=== PATIENT | male | born 1950 | race Caucasian/White ===

== ENCOUNTER → 2023-09-08 06:21 | Outpatient (REF) | payer MEDICARE, BC, SELFPAY ==
[2023-09-08 07:02] LABS: % Basophils 0.3 % (0-2); % Eosinophils 5.6 % (0-6); % Immature Granulocytes 0.6 % (0-0.5); % Lymphocytes 22.4 % (20.5-51.1); % Monocytes 7.9 % (1.7-9.3); % Neutrophils 63.2 % (42.2-75.2); Absolute Eosinophils 0.4 10^3/uL (0-0.7); Absolute Lymphocytes 1.5 10^3/uL (1.2-3.4); Absolute Monocytes 0.5 10^3/uL (0.1-0.6); Absolute Neutrophils 4.2 10^3/uL (1.4-6.5); Hematocrit 44.3 % (39.0-52.0); Hemoglobin 14.6 g/dL (13.0-18.0); Mean Corpuscular Volume 91.2 fL (80.0-94.0); Mean Platelet Volume 9.7 fL (7.4-10.4); Nucleated Red Blood Cells % 0 % (-); Platelet Count 190 10^3/uL (130-400); Red Blood Cell Count 4.86 10^6/uL (4.70-6.10); Red Cell Dist. Width 13.2 % (11.5-14.5); White Blood Cell Count 6.6 10^3/uL (4.8-10.8)
[2023-09-08 07:36] LABS: ALT (SGPT) 29 U/L (0-50); AST (SGOT) 25 U/L (17-59); Albumin 4.3 g/dl (3.5-5.0); Alkaline Phosphatase 55 U/L (38-126); Blood Urea Nitrogen 22 mg/dl (9-20); Calcium 9.1 mg/dl (8.4-10.2); Carbon Dioxide 30 mmol/L (22-30); Chloride 101 mmol/L (98-107); Glucose 115 mg/dl (70-99); HDL Cholesterol 47 mg/dl; LDL Cholesterol, Calculated 102 mg/dl; Potassium 4.7 mmol/L (3.5-5.1); Sodium 136 mmol/L (135-145); Total Bilirubin 0.4 mg/dl (0.2-1.3); Total Cholesterol 178 mg/dl (50-199); Total Protein 6.3 g/dl (6.3-8.2); Triglyceride 145 mg/dl (10-149); Very Low Density Lipoprotein 29 mg/dl (0-30); eGFR > 60.00
[2023-09-08 08:07] LABS: PSA, Total - Screen 3.76 ng/ml (0.0-4.0)
[2023-09-08 09:12] LABS: TSH 3.52 uIU/ml (0.47-4.68)
[2023-09-08 09:15] LABS: Glycohemoglobin (HgbA1c) 6.1 % (4.0-5.6)
== END ==
LOC: REG 06:21
PROVIDERS: ATTENDING PHYSICIAN Internal Medicine Endocrinology, Diabetes & Metabolism; FAMILY PHYSICIAN Internal Medicine; REFERRING PHYSICIAN Internal Medicine Hematology & Oncology
DX: E27.40 Unspecified adrenocortical insufficiency (principal); R73.03 Prediabetes; E78.5 Hyperlipidemia, unspecified; K21.00 Gastro-esophageal reflux disease with esophagitis, without bleeding; N40.1 Benign prostatic hyperplasia with lower urinary tract symptoms; E66.9 Obesity, unspecified; Z12.5 Encounter for screening for malignant neoplasm of prostate
CPT/HCPCS: 36415; 80053; 80061; 83036; 84443; 85025; G0103

== ENCOUNTER → 2023-09-19 13:46 | Outpatient (REF) | payer MEDICARE, BC, SELFPAY | LOC: RAD 13:46 | PROVIDERS: ATTENDING PHYSICIAN Internal Medicine Hematology & Oncology; FAMILY PHYSICIAN Internal Medicine | DX: C83.33 Diffuse large B-cell lymphoma, intra-abdominal lymph nodes (principal) | CPT/HCPCS: 71260; 74177; Q9967 ==

== ENCOUNTER → 2023-10-06 06:28 | Outpatient (REF) | payer MEDICARE, BC, SELFPAY | LOC: RSP 06:28 | PROVIDERS: ATTENDING PHYSICIAN Internal Medicine | DX: J41.0 Simple chronic bronchitis (principal) | CPT/HCPCS: 94727; 94729; 88738; 94060 ==

== ENCOUNTER → 2023-10-12 10:31 | Outpatient (REF) | payer MEDICARE, BC, SELFPAY | LOC: DHCBC/DCA 10:31 | PROVIDERS: ATTENDING PHYSICIAN Internal Medicine | DX: I25.10 Atherosclerotic heart disease of native coronary artery without angina pectoris (principal) | CPT/HCPCS: 78452; 93017; A9500; J2785 ==

== ENCOUNTER → 2024-03-03 07:37 | Outpatient (REF) | payer MEDICARE, SELFPAY ==
[2024-03-03 10:05] LABS: ALT (SGPT) 27 U/L (0-50); AST (SGOT) 27 U/L (17-59); Albumin 4.6 g/dl (3.5-5.0); Alkaline Phosphatase 59 U/L (38-126); Blood Urea Nitrogen 19 mg/dl (9-20); Calcium 9.2 mg/dl (8.4-10.2); Carbon Dioxide 28 mmol/L (22-30); Chloride 101 mmol/L (98-107); Glucose 84 mg/dl (70-99); Potassium 4.6 mmol/L (3.5-5.1); Sodium 142 mmol/L (135-145); Total Bilirubin 0.5 mg/dl (0.2-1.3); Total Protein 6.7 g/dl (6.3-8.2); eGFR > 60.00
[2024-03-03 10:11] LABS: Prolactin 9.7 ng/ml (3.7-17.9)
== END ==
LOC: REG 07:37
PROVIDERS: ATTENDING PHYSICIAN Internal Medicine Endocrinology, Diabetes & Metabolism; FAMILY PHYSICIAN Nurse Practitioner; REFERRING PHYSICIAN Internal Medicine
DX: I63.9 Cerebral infarction, unspecified (principal); I10 Essential (primary) hypertension; R73.03 Prediabetes; E66.09 Other obesity due to excess calories; Z68.33 Body mass index [BMI] 33.0-33.9, adult; E27.40 Unspecified adrenocortical insufficiency; E22.1 Hyperprolactinemia
CPT/HCPCS: 36415; 80053; 84146

== ENCOUNTER → 2024-04-11 08:03 | Outpatient (REF) | payer MEDICARE, SELFPAY ==
[2024-04-11 10:00] LABS: % Basophils 0.3 % (0-2); % Eosinophils 5.4 % (0-6); % Immature Granulocytes 0.6 % (0-0.5); % Lymphocytes 20.3 % (20.5-51.1); % Monocytes 7.8 % (1.7-9.3); % Neutrophils 65.6 % (42.2-75.2); Absolute Eosinophils 0.4 10^3/uL (0-0.7); Absolute Lymphocytes 1.4 10^3/uL (1.2-3.4); Absolute Monocytes 0.6 10^3/uL (0.1-0.6); Absolute Neutrophils 4.6 10^3/uL (1.4-6.5); Hemoglobin 14.8 g/dL (13.0-18.0); Mean Corp Hgb Conc. 32.2 g/dL (33.0-37.0); Mean Corpuscular Hgb 29.7 pg (27.0-31.0); Mean Corpuscular Volume 92.2 fL (80.0-94.0); Mean Platelet Volume 9.7 fL (7.4-10.4); Nucleated Red Blood Cells % 0 % (-); Platelet Count 205 10^3/uL (130-400); Red Blood Cell Count 4.99 10^6/uL (4.70-6.10); Red Cell Dist. Width 13.7 % (11.5-14.5)
[2024-04-11 11:30] LABS: Blood Urea Nitrogen 21 mg/dl (9-20); Calcium 9.2 mg/dl (8.4-10.2); Carbon Dioxide 32 mmol/L (22-30); Chloride 99 mmol/L (98-107); Glucose 92 mg/dl (70-99); LDH 194 U/L (120-246); Potassium 4.5 mmol/L (3.5-5.1); Sodium 140 mmol/L (135-145); eGFR > 60.00
== END ==
LOC: REG 08:03
PROVIDERS: ATTENDING PHYSICIAN Internal Medicine Hematology & Oncology; FAMILY PHYSICIAN Internal Medicine; REFERRING PHYSICIAN Internal Medicine Endocrinology, Diabetes & Metabolism
DX: C83.33 Diffuse large B-cell lymphoma, intra-abdominal lymph nodes (principal); E27.8 Other specified disorders of adrenal gland
CPT/HCPCS: 36415; 80048; 83615; 85025

== ENCOUNTER → 2024-08-23 07:44 | Outpatient (REF) | payer MEDICARE, SELFPAY ==
[2024-08-23 08:31] LABS: % Basophils 0.4 % (0-2); % Eosinophils 3.9 % (0-6); % Immature Granulocytes 0.4 % (0-0.5); % Lymphocytes 23.1 % (20.5-51.1); % Monocytes 8.9 % (1.7-9.3); % Neutrophils 63.3 % (42.2-75.2); Absolute Eosinophils 0.3 10^3/uL (0-0.7); Absolute Lymphocytes 1.7 10^3/uL (1.2-3.4); Absolute Monocytes 0.6 10^3/uL (0.1-0.6); Absolute Neutrophils 4.6 10^3/uL (1.4-6.5); Hematocrit 45.8 % (39.0-52.0); Hemoglobin 15.2 g/dL (13.0-18.0); Mean Corp Hgb Conc. 33.2 g/dL (33.0-37.0); Mean Corpuscular Hgb 30.2 pg (27.0-31.0); Mean Corpuscular Volume 91.1 fL (80.0-94.0); Mean Platelet Volume 9.9 fL (7.4-10.4); Nucleated Red Blood Cells % 0 % (-); Platelet Count 191 10^3/uL (130-400); Red Blood Cell Count 5.03 10^6/uL (4.70-6.10); Red Cell Dist. Width 13.5 % (11.5-14.5); White Blood Cell Count 7.2 10^3/uL (4.8-10.8)
[2024-08-23 11:45] LABS: ALT (SGPT) 28 U/L (0-50); AST (SGOT) 25 U/L (17-59); Albumin 4.3 g/dl (3.5-5.0); Alkaline Phosphatase 63 U/L (38-126); Blood Urea Nitrogen 20 mg/dl (9-20); Calcium 9.3 mg/dl (8.4-10.2); Carbon Dioxide 30 mmol/L (22-30); Chloride 103 mmol/L (98-107); Glucose 109 mg/dl (70-99); HDL Cholesterol 45 mg/dl; LDL Cholesterol, Calculated 159 mg/dl; Potassium 5.5 mmol/L (3.5-5.1); Sodium 142 mmol/L (135-145); Total Bilirubin 0.7 mg/dl (0.2-1.3); Total Cholesterol 231 mg/dl (50-199); Total Protein 6.7 g/dl (6.3-8.2); Triglyceride 135 mg/dl (10-149); Very Low Density Lipoprotein 27 mg/dl (0-30); eGFR > 60.00
[2024-08-23 13:12] LABS: Cortisol, Random 8.9 ug/dl
[2024-08-23 14:09] LABS: LDH 183 U/L (120-246)
== END ==
LOC: REG 07:44
PROVIDERS: ATTENDING PHYSICIAN Internal Medicine Endocrinology, Diabetes & Metabolism; FAMILY PHYSICIAN Internal Medicine Hematology & Oncology; REFERRING PHYSICIAN Internal Medicine
DX: E27.40 Unspecified adrenocortical insufficiency (principal); R73.03 Prediabetes; E78.5 Hyperlipidemia, unspecified; C83.33 Diffuse large B-cell lymphoma, intra-abdominal lymph nodes; E27.8 Other specified disorders of adrenal gland
CPT/HCPCS: 36415; 80053; 80061; 82533; 83036; 83615; 85025

== ENCOUNTER → 2024-10-20 07:57 | Outpatient (REF) | payer MEDICARE, BC, SELFPAY ==
[2024-10-20 09:33] LABS: Blood Urea Nitrogen 19 mg/dl (9-20); Calcium 9.6 mg/dl (8.4-10.2); Carbon Dioxide 29 mmol/L (22-30); Chloride 105 mmol/L (98-107); Glucose 73 mg/dl (70-99); LDH 185 U/L (120-246); Potassium 5.1 mmol/L (3.5-5.1); Sodium 142 mmol/L (135-145); eGFR > 60.00
[2024-10-20 10:37] LABS: % Basophils 0.4 % (0-2); % Eosinophils 5.1 % (0-6); % Immature Granulocytes 0.4 % (0-0.5); % Lymphocytes 21.2 % (20.5-51.1); % Monocytes 10.5 % (1.7-9.3); % Neutrophils 62.4 % (42.2-75.2); Absolute Eosinophils 0.4 10^3/uL (0-0.7); Absolute Lymphocytes 1.5 10^3/uL (1.2-3.4); Absolute Monocytes 0.7 10^3/uL (0.1-0.6); Absolute Neutrophils 4.4 10^3/uL (1.4-6.5); Hematocrit 43.2 % (39.0-52.0); Hemoglobin 14.6 g/dL (13.0-18.0); Mean Corp Hgb Conc. 33.8 g/dL (33.0-37.0); Mean Corpuscular Hgb 30.5 pg (27.0-31.0); Mean Corpuscular Volume 90.2 fL (80.0-94.0); Mean Platelet Volume 10.1 fL (7.4-10.4); Nucleated Red Blood Cells % 0 % (-); Platelet Count 208 10^3/uL (130-400); Red Blood Cell Count 4.79 10^6/uL (4.70-6.10); Red Cell Dist. Width 13.5 % (11.5-14.5); White Blood Cell Count 7.1 10^3/uL (4.8-10.8)
== END ==
LOC: REG 07:57
PROVIDERS: ATTENDING PHYSICIAN Internal Medicine Hematology & Oncology; FAMILY PHYSICIAN Internal Medicine; REFERRING PHYSICIAN Internal Medicine Endocrinology, Diabetes & Metabolism
DX: C83.33 Diffuse large B-cell lymphoma, intra-abdominal lymph nodes (principal); E27.8 Other specified disorders of adrenal gland
CPT/HCPCS: 36415; 80048; 83615; 85025

== ENCOUNTER → 2024-12-10 07:53 | Outpatient (REF) | payer MEDICARE, BC, SELFPAY | LOC: HWRAD 07:53 | PROVIDERS: ATTENDING PHYSICIAN Nurse Practitioner Family | DX: R10.32 Left lower quadrant pain (principal); K40.90 Unilateral inguinal hernia, without obstruction or gangrene, not specified as recurrent; R22.42 Localized swelling, mass and lump, left lower limb; R22.41 Localized swelling, mass and lump, right lower limb | CPT/HCPCS: 76882 ==

== ENCOUNTER → 2024-12-19 14:49 | Outpatient (REF) | payer MEDICARE, BC, SELFPAY | LOC: HWRAD 14:49 | PROVIDERS: ATTENDING PHYSICIAN Nurse Practitioner Family; FAMILY PHYSICIAN Internal Medicine | DX: R10.32 Left lower quadrant pain (principal) | CPT/HCPCS: 73523 ==

== ENCOUNTER → 2025-01-24 07:16 | Outpatient (REF) | payer MEDICARE, BC, SELFPAY | LOC: RAD 07:16 | PROVIDERS: ATTENDING PHYSICIAN Internal Medicine; REFERRING PHYSICIAN Internal Medicine Hematology & Oncology | DX: R18.8 Other ascites (principal) | CPT/HCPCS: 74177; Q9967 ==

== ENCOUNTER 2025-02-19 06:25 | Day surgery (SDC) | payer MEDICARE, BC, SELFPAY | END 2025-02-19 10:56 | disposition home or self-care (01) | LOC: GI 06:25 | PROVIDERS: ATTENDING PHYSICIAN Student in an Organized Health Care Education/Training Program | DX: R93.3 Abnormal findings on diagnostic imaging of other parts of digestive tract (principal); K64.4 Residual hemorrhoidal skin tags; K64.8 Other hemorrhoids; K63.89 Other specified diseases of intestine; D12.0 Benign neoplasm of cecum; D12.3 Benign neoplasm of transverse colon; D12.4 Benign neoplasm of descending colon | CPT/HCPCS: 45385; 45380; 88305 ==

== ENCOUNTER → 2025-03-04 07:35 | Outpatient (REF) | payer MEDICARE, BC, SELFPAY ==
[2025-03-04 08:56] LABS: Hematocrit 44.9 % (39.0-52.0); Hemoglobin 14.0 g/dL (13.0-18.0); Mean Corp Hgb Conc. 31.2 g/dL (33.0-37.0); Mean Corpuscular Volume 94.7 fL (80.0-94.0); Nucleated Red Blood Cells % 0 % (-); Platelet Count 197 10^3/uL (130-400); Red Cell Dist. Width 13.6 % (11.5-14.5)
[2025-03-04 09:14] LABS: ALT (SGPT) 19 U/L (0-50); AST (SGOT) 19 U/L (17-59); Albumin 4.3 g/dl (3.5-5.0); Alkaline Phosphatase 48 U/L (38-126); Blood Urea Nitrogen 26 mg/dl (9-20); Calcium 9.4 mg/dl (8.4-10.2); Carbon Dioxide 32 mmol/L (22-30); Chloride 102 mmol/L (98-107); Glucose 85 mg/dl (70-99); Glycohemoglobin (HgbA1c) 6.1 % (4.0-5.9); HDL Cholesterol 48 mg/dl; LDL Cholesterol, Calculated 111 mg/dl; Potassium 5.2 mmol/L (3.5-5.1); Sodium 139 mmol/L (135-145); Total Protein 6.4 g/dl (6.3-8.2); Very Low Density Lipoprotein 20 mg/dl (0-30); eGFR > 60.00
== END ==
LOC: REG 07:35
PROVIDERS: ATTENDING PHYSICIAN Internal Medicine Endocrinology, Diabetes & Metabolism; FAMILY PHYSICIAN Internal Medicine
DX: R73.03 Prediabetes (principal); E78.5 Hyperlipidemia, unspecified; E27.40 Unspecified adrenocortical insufficiency
CPT/HCPCS: 36415; 80053; 80061; 83036; 85025

== ENCOUNTER → 2025-04-16 08:11 | Outpatient (REF) | payer MEDICARE, BC, SELFPAY ==
[2025-04-16 09:01] LABS: Hematocrit 44.6 % (39.0-52.0); Hemoglobin 14.3 g/dL (13.0-18.0); Mean Corp Hgb Conc. 32.1 g/dL (33.0-37.0); Mean Corpuscular Volume 95.5 fL (80.0-94.0); Nucleated Red Blood Cells % 0 % (-); Platelet Count 170 10^3/uL (130-400); Red Cell Dist. Width 14.2 % (11.5-14.5)
[2025-04-16 15:16] LABS: Blood Urea Nitrogen 26 mg/dl (9-20); Calcium 9.9 mg/dl (8.4-10.2); Carbon Dioxide 31 mmol/L (22-30); Chloride 103 mmol/L (98-107); Glucose 97 mg/dl (70-99); LDH 166 U/L (120-246); Potassium 5.1 mmol/L (3.5-5.1); Sodium 138 mmol/L (135-145); eGFR > 60.00
== END ==
LOC: REG 08:11
PROVIDERS: ATTENDING PHYSICIAN Internal Medicine Hematology & Oncology
DX: C83.33 Diffuse large B-cell lymphoma, intra-abdominal lymph nodes (principal); E27.8 Other specified disorders of adrenal gland
CPT/HCPCS: 36415; 80048; 83615; 85025

== ENCOUNTER → 2025-04-18 07:15 | Outpatient (REF) | payer MEDICARE, BC, SELFPAY | LOC: RAD 07:15 | PROVIDERS: ATTENDING PHYSICIAN Internal Medicine Hematology & Oncology; FAMILY PHYSICIAN Internal Medicine | DX: C83.33 Diffuse large B-cell lymphoma, intra-abdominal lymph nodes (principal) | CPT/HCPCS: 71260; 74177; Q9967 ==